=== PATIENT | female | born 1995 | race Caucasian/White ===

== ENCOUNTER 2020-09-07 04:33 | Inpatient (IN) | payer BC ==
[2020-09-07 04:58] VITALS: BMI 25.4
[2020-09-07] MEDS ORDERED: hydrALAZINE 20 MG/ML VIAL SLOW IVP PRN ×3 (05:50→18:27)
[2020-09-07 06:13] LABS: Amnisure Test RUPTURE DETECTED (No Rupture)
[2020-09-07] MEDS ORDERED: Promethazine HCl 25 MG/ML VIAL IM PRN ×2 (06:20→14:44)
[2020-09-07] MEDS ORDERED: Butorphanol Tartrate 1 MG/ML VIAL SLOW IVP PRN (06:20)
[2020-09-07] MEDS ORDERED: Ibuprofen 800 MG TAB PO PRN (06:20)
[2020-09-07] MEDS ORDERED: HYDROcodone/Acetaminophen 5/325 mg Tablet PO PRN ×3 (06:20→18:27)
[2020-09-07] MEDS ORDERED: Lidocaine 1% (PF) 30 ML VIAL SC PRN (06:20)
[2020-09-07] MEDS ORDERED: NS / Oxytocin 40 units/1000ml 1,000 ML IV PRN (06:20)
[2020-09-07] MEDS ORDERED: Bupivacaine 0.25% HCL 30 ML VIAL ONE (07:00)
[2020-09-07] MEDS ORDERED: ePHEDrine Sulfate 50 MG/10 ML VIAL ONE (07:00)
[2020-09-07] MEDS: Lactated Ringer's 1,000 ML IV SCH (07:35)
[2020-09-07 07:43] LABS: Mean Corpuscular Hemoglobin 24.8 pg (27.0-33.0); Mean Corpuscular Volume 80.1 fl (81.6-98.3); Mean Platelet Volume 11.4 fl (7.4-10.4); Platelet Count 203 10x3/uL (150-450); RBC Distribution Width 16.9 % (11.5-14.5); Red Blood Cell (RBC) Count 4.03 10x6/uL (3.90-5.03); White Blood Cell (WBC) Count 9.7 10x3/uL (3.5-10.5)
[2020-09-07] MEDS ORDERED: NS w/ Oxytocin 30 units 500 ML ONE ×2 (08:00→18:31)
[2020-09-07] MEDS: Ondansetron PF 4 MG/2 ML Vial IVP PRN ×2 (08:31→16:05)
[2020-09-07 08:44] LABS: Hep B Surf Ag Non-Reactive S/CO (NonReactive); Syphilis Antibody Nonreactive (Nonreactive); Syphilis Antibody Index 0.03 S/CO (<1.00 Non-Reactive)
[2020-09-07 09:06] LABS: HBSAg Index 0.16 S/CO (0-0.99)
[2020-09-07] MEDS ORDERED: Fentanyl 4 mcg/Bup 0.1% Cadd 100 ML ONE (10:07)
[2020-09-07] MEDS ORDERED: Lactated Ringer's 500 ML IV PRN (14:44)
[2020-09-07] MEDS ORDERED: Naloxone HCl 0.4 mg/ml Vial IVP PRN ×2 (14:44)
[2020-09-07] MEDS ORDERED: Ondansetron PF 4 MG/2 ML Vial IVP PRN ×2 (14:44→18:27)
[2020-09-07] MEDS ORDERED: diphenhydrAMINE 50 MG/ML VIAL IVP PRN (14:44)
[2020-09-07] MEDS ORDERED: Acetaminophen 325 MG TAB PO PRN ×2 (14:44→18:33)
[2020-09-07] MEDS ORDERED: Fentanyl 4 mcg/Bupivacaine 0.1% Cassette 100 ML EPIDURAL SCH (14:45)
[2020-09-07] MEDS ORDERED: Communication Order-Pharmacy FS PRN (14:45)
[2020-09-07] MEDS ORDERED: Hydrocerin (Eucerin) Cream 120 gm Jar TOP PRN (16:14)
[2020-09-07] MEDS ORDERED: Fentanyl 4 mcg/Bup 0.1667% 200 ML CADD EPIDURAL SCH (16:15)
[2020-09-07] MEDS ORDERED: ePHEDrine Sulfate 50 MG/10 ML VIAL SLOW IVP PRN (16:16)
[2020-09-07] MEDS ORDERED: Lanolin Ointment 7 GM TUBE TOP PRN (18:27)
[2020-09-07] MEDS ORDERED: Milk Of Magnesia 30 ML UDCUP PO PRN (18:27)
[2020-09-07] MEDS ORDERED: diphenhydrAMINE 25 MG CAP PO PRN (18:27)
[2020-09-07] MEDS ORDERED: Misoprostol 200 MCG TAB VAG PRN (18:27)
[2020-09-07] MEDS ORDERED: Zolpidem Tartrate 5 MG TAB PO PRN (18:27)
[2020-09-07] MEDS ORDERED: Bisacodyl 10 MG SUPP PR PRN (18:27)
[2020-09-07] MEDS ORDERED: Preparation H Ointment 28 GM TUBE PR PRN (18:27)
[2020-09-07] MEDS ORDERED: NS w/ Oxytocin 30 units 500 ML IV SCH (18:30)
[2020-09-07] MEDS ORDERED: Witch Hazel-Glycerin 1 EACH JAR TOP PRN (18:33)
[2020-09-07] MEDS: HYDROcodone/Acetaminophen 5/325 mg Tablet PO PRN (21:32)
[2020-09-07 21:46] LABS: SARS-CoV-2 PCR by NAA Not Detected (NotDetected)
[2020-09-07] MEDS: Ibuprofen 800 MG TAB PO SCH (22:07)
[2020-09-07] MEDS: Docusate Calcium (SURFAK) 240 MG CAP PO SCH (22:23)
[2020-09-08] MEDS: Lactated Ringer's 1,000 ML IV SCH (01:55)
[2020-09-08] MEDS: Ibuprofen 800 MG TAB PO SCH ×2 (05:07→14:02)
[2020-09-08 06:18] LABS: Hemoglobin 8.9 g/dL (12.0-15.5); Mean Corpuscular HGB CONC 30.8 g/dL (32.0-36.0); Mean Corpuscular Hemoglobin 24.7 pg (27.0-33.0); Mean Corpuscular Volume 80.1 fl (81.6-98.3); Platelet Count 172 10x3/uL (150-450); RBC Distribution Width 17.3 % (11.5-14.5); Red Blood Cell (RBC) Count 3.61 10x6/uL (3.90-5.03)
[2020-09-08] MEDS: Ferrous Sulfate 325 MG TAB PO SCH ×2 (08:44→17:27)
[2020-09-08] MEDS: Docusate Calcium (SURFAK) 240 MG CAP PO SCH (08:44)
[2020-09-08] MEDS: HYDROcodone/Acetaminophen 5/325 mg Tablet PO PRN (08:47)
[2020-09-08] MEDS ORDERED: Prenatal Vitamin 1 TAB PO SCH (09:00)
[2020-09-08] MEDS ORDERED: Adacel (T-DAP) 0.5 ML SYRINGE IM ONE (09:00)
[2020-09-08 17:55] VITALS: BP 104/61; TEMP 98.5
== END 2020-09-08 20:10 | disposition home or self-care (01) | DRG 807 ==
LOC: CSHLD/OP 04:33 → CSHLD 14:48 → CSHPP 21:40
PROVIDERS: ADMIT Obstetrics & Gynecology; ATTEND Obstetrics & Gynecology
PROC: 10E0XZZ Delivery of Products of Conception, External Approach (ICD-10-PCS; principal; 2020-09-07)
PROC: 0KQM0ZZ Repair Perineum Muscle, Open Approach (ICD-10-PCS; 2020-09-07)
DX: O70.1 Second degree perineal laceration during delivery (principal); Z37.0 Single live birth; Z20.822 Contact with and (suspected) exposure to COVID-19; Z90.49 Acquired absence of other specified parts of digestive tract; Z3A.38 38 weeks gestation of pregnancy
CPT/HCPCS: 36415; 51702; 84112; 85027; 85461; 86780; 86850; 86900; 86901; 87340; 87635; 99285; J2405; J2550; J2590; S0020; U0003; U0005

== ENCOUNTER 2021-02-16 10:36 | Outpatient (CLI) | payer BC ==
[2021-02-16 11:22] LABS: Hemoglobin 12.9 g/dL (12.0-15.5); Mean Corpuscular HGB CONC 32.2 g/dL (32.0-36.0); Mean Corpuscular Hemoglobin 28.3 pg (27.0-33.0); Mean Corpuscular Volume 87.9 fl (81.6-98.3); Mean Platelet Volume 10.6 fl (7.4-10.4); Platelet Count 233 10x3/uL (150-450); RBC Distribution Width 12.9 % (11.5-14.5); Red Blood Cell (RBC) Count 4.56 10x6/uL (3.90-5.03)
[2021-02-16 11:27] LABS: Bilirubin Neg (Negative); Blood, Urine Negative (Negative); Clarity Cloudy (Clear); Glucose, Urine (Dipstick) Normal (Negative); Ketone, Urine Negative (Negative); Leukocyte Negative (Negative); Nitrite Negative (Negative); Protein, Urine (Dipstick) Negative (Neg-Trace); Urobilinogen Normal mg/dL (Less than 2)
[2021-02-16 11:43] LABS: BHCG - Serum Negative (NEGATIVE); Pregs Control Background? CLEAR/WHITE (CLR/WHITE); Pregs Control Bar Appear? YES (CONTROL BAR)
[2021-02-16 16:55] LABS: SARS-CoV-2 PCR by NAA Not Detected (NotDetected)
== END 2021-02-16 10:37 | disposition home or self-care (01) ==
LOC: CSHLAB 10:36
PROVIDERS: ATTEND Obstetrics & Gynecology
DX: Z01.812 Encounter for preprocedural laboratory examination (principal); Z20.822 Contact with and (suspected) exposure to COVID-19; N94.6 Dysmenorrhea, unspecified; R10.2 Pelvic and perineal pain
CPT/HCPCS: 81003; 84703; 85027; U0003; U0005

== ENCOUNTER → 2021-02-19 | Day surgery (SDC) | payer BC ==
[2021-02-18 11:33] VITALS: BMI 19.3
[~2021-02-19] MED LIST: Acetaminophen 325 MG TAB PO PRN; Acetaminophen 500 MG TAB ONE; Bupivacaine PF 0.5% 30 ML VIAL ONE; EPINEPHrine 1 MG/ML AMP ONE; Fentanyl 100 MCG/2 ML VIAL ONE; Glycopyrrolate 0.2 MG/ML 5 ML SYRINGE ONE; HYDROcodone/Acetaminophen 7.5/325 mg Tablet ONE; Ketorolac Tromethamine 30 MG/ML VIAL IVP SCH; Ketorolac Tromethamine 30 MG/ML VIAL ONE; Lactated Ringer's 1,000 ML IV SCH; Lidocaine 1% MPF 2 ML VIAL ONE; Lidocaine 1% PF 5 ML VIAL ONE; Meperidine HCl/PF 25 MG/ML VIAL ONE; Morphine 2 MG/ML VIAL SLOW IVP PRN; Ondansetron PF 4 MG/2 ML Vial IVP PRN; PHENYLEPHRINE-NS 100 MCG/ML 10 ML SYRINGE ONE; PROPOFOL 20 ML ONE; Rocuronium Bromide 10 MG/ML (10ML VIAL) ONE; Scopolamine 1.5 mg/72 hour Patch ONE; ceFAZolin 2 GM/DEX 5% 100 ML BAG ONE
[2021-02-19 16:33] LABS: Hemoglobin 11.8 g/dL (12.0-15.5); Mean Corpuscular HGB CONC 31.8 g/dL (32.0-36.0); Mean Corpuscular Hemoglobin 28.4 pg (27.0-33.0); Mean Corpuscular Volume 89.4 fl (81.6-98.3); Mean Platelet Volume 11.2 fl (7.4-10.4); Platelet Count 189 10x3/uL (150-450); RBC Distribution Width 12.8 % (11.5-14.5); Red Blood Cell (RBC) Count 4.15 10x6/uL (3.90-5.03); White Blood Cell (WBC) Count 11.7 10x3/uL (3.5-10.5)
== END ==
LOC: CSHSDC 06:41
PROVIDERS: ATTEND Obstetrics & Gynecology
PROC: 0U544ZZ Destruction of Uterine Supporting Structure, Percutaneous Endoscopic Approach (ICD-10-PCS; principal; 2021-02-19)
PROC: 0UT94ZZ Resection of Uterus, Percutaneous Endoscopic Approach (ICD-10-PCS; principal; 2021-02-19)
PROC: 0U514ZZ Destruction of Left Ovary, Percutaneous Endoscopic Approach (ICD-10-PCS; principal; 2021-02-19)
PROC: 0UT74ZZ Resection of Bilateral Fallopian Tubes, Percutaneous Endoscopic Approach (ICD-10-PCS; principal; 2021-02-19)
DX: N83.8 Other noninflammatory disorders of ovary, fallopian tube and broad ligament (principal); N80.0 Endometriosis of uterus; N80.1 Endometriosis of ovary; N80.2 Endometriosis of fallopian tube; N80.3 Endometriosis of pelvic peritoneum; N83.202 Unspecified ovarian cyst, left side; N73.6 Female pelvic peritoneal adhesions (postinfective); N94.6 Dysmenorrhea, unspecified
CPT/HCPCS: 85027; 88307; J0171; J1885; J2175; J2704; J3010; S0020